=== PATIENT | female | born 1990 | race Caucasian/White ===

== ENCOUNTER 2022-10-09 08:32 | Outpatient (CLI) | payer BC, MEDICAID, SELFPAY ==
--- NOTE | 2022-10-29 11:49 | WPDSLEEPSTUD ---
Sleep Study Date of Study: 10/09/22 Ordering Provider: Adelia Sanchez MD Interpreting Physician: Adelia Sanchez MD Sleep Study Type: Polysomnogram Height: 1.63 m Weight: 108.862 kg Body Mass Index: 41.1 Neck Circumference (inches): 17.5 [place]: 6 Reason for Sleep Study Loud snoring, longstanding hypersomnolence; she has depression, anxiety, and ADHD Sleep History Paola Umaña is a 32-year-old woman with anxiety, depression, ADHD on medications. She has been excessively sleepy for years. She was always the first kid to fall asleep at gatherings. While using ADHD medications, her [place] is 6, in the normal range. she does not have a constellation of symptoms to suggest narcolepsy, no loss of muscle tone with strong emotion, no vivid dreams on sleep onset or on waking, no sleep paralysis and does not have unintended sleep episodes. She never wakes up feeling refreshed. She has excessively loud snoring. She has used nasal dilators trips on her nose for years. he does not awaken from sleep feeling short of breath. She occasionally awakens at night with heartburn, belching or coughing. She always snores loudly enough that others complain. She frequently has difficulty sleeping if she has a cold. She does not gasp for breath at night. She rarely has breathing problems at night observed by others. She rarely sweats excessively at night. She does not notice her heart pounding or beating irregularly at night. She frequently falls asleep during the day. She does not fall asleep involuntarily or while driving. She does not have loss of muscle tone with strong emotion. She frequently has daytime difficulties due to excessive sleepiness. 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 She does not feel paralyzed on waking or falling asleep. She does not have vivid dreamlike scenes on waking or falling asleep. She does not feel afraid to go to sleep. She rarely has nightmares. She rarely remembers her dreams. She rarely has racing thoughts. She occasionally feels sad, depressed, or anxious. She does not have muscular tension. She rarely notices parts of her body jerking. She rarely kicks at night. She rarely has crawling and aching feelings in her legs. She does not have any kind of leg pain at night. She does not have morning jaw pain. She frequently grinds her teeth during sleep. She rarely is bothered by pain during the day, rarely awakened by pain at night. She frequently wakes up feeling stiff in the morning. She occasionally wakes up with sore achy muscles. She frequently wakes up with pain in the neck and spine. She has headaches, fatigue, concentration difficulties and depression. She has acid reflux which is well treated with omeprazole 40 mg a day. She also reports ulcerative colitis. She has had a 20 lb increase in her weight during the last year. she has a longstanding history of sinus problems, sinus drainage, discharge but not frequent sinus infections. Normal bedtime is 9:00 p.m. falling asleep within 10 minutes. She wakes once at night to go to the bathroom and is able to return to sleep quickly. She wakes the morning by 6 or 7:00 a.m.. On weekends, she may go to bed later, bedtime may be between 9:00 p.m. and 11:00 p.m.. She sleeps in, wakes between 9:00 a.m. and 10:00 a.m.. She estimates getting between 8-10 hours of sleep at night. she takes naps in the afternoon or evening. A short nap lasting 10 or 15 minutes may be refreshing. She is usually drowsy for 2 hours after waking. She feels better in the evening compared to other times of the day. Habits: Tobacco a half pack per day. Caffeine: Coffee or soda. Alcohol: 1-2 oz of vodka -4 times a week [facility] Past Medical History Medical History (Updated 10/29/22 @ 12:15 by Adelia Sanchez MD) Acid reflux ADHD Anxiety Depression Snoring
[2022-10-29 12:09] VITALS: BMI 41.1
== END 2022-10-10 07:50 | disposition home or self-care (01) ==
LOC: ANHCSM 08:34
PROVIDERS: PCP Family Medicine; Visit Provider Internal Medicine Critical Care Medicine
DX: G47.19 Other hypersomnia (principal)
CPT/HCPCS: 95810

== ENCOUNTER 2022-10-24 09:04 | Emergency (ER) | payer BC, MEDICAID, SELFPAY ==
[2022-10-24 09:05] VITALS: BP 148/92; PULSE 92; RESP 16; TEMP 36.9; O2SAT 96
--- NOTE | 2022-10-24 09:24 | ED.GENADULT ---
HPI - General Adult General Chief complaint: Unspecified Stated complaint: Hemorrhoid Time Seen by Provider: 10/24/22 09:09 History of Present Illness HPI narrative: 32-year-old female presents to the emergency room for evaluation of a bleeding hemorrhoid. Patient states she woke up this morning and noticed bright red blood in her underwear and on her stool. Patient denies any abdominal or rectal pain or itching. Patient has a known history of hemorrhoids and states that she applied hydrocortisone cream to it this morning with no resolution of symptoms. Related Data Home Medications Medication Instructions Recorded Confirmed clonazepam 0.5 mg tablet 0.5 mg PO DAILY 12/14/18 10/02/22 dexmethylphenidate 35 mg 35 mg PO DAILY 10/02/22 10/02/22 capsule,extended release [id number] (Focalin XR) escitalopram oxalate 20 mg tablet 20 mg PO DAILY 10/02/22 10/02/22 (Lexapro) omeprazole 40 mg capsule,delayed 40 mg PO DAILY 10/02/22 10/02/22 release Allergies Allergy/AdvReac Type Severity Reaction Status Date / Time polyethylene glycol AdvReac Severe Hives Verified 10/24/22 09:05 Review of Systems Review of Systems: CONSTITUTIONAL: Denies fever, chills, or sweats. EYES: Denies visual changes, redness, or discharge. ENT: Denies rhinorrhea, congestion, sore throat, or otalgia. CARDIOVASCULAR: Denies chest pain, palpitations, or edema. RESPIRATORY: Denies cough or dyspnea. GASTROINTESTINAL: Denies abdominal pain, nausea, vomiting, or diarrhea. GENITOURINARY: Denies dysuria or hematuria. SKIN: Denies rash or itching. MUSCULOSKELETAL: Denies back pain, joint pain, or myalgia. NEUROLOGIC: Denies headache, numbness, dizziness, or weakness. PSYCHIATRIC: Denies anxiety or depression. [facility] Past Medical History Medical History Snoring Surgical History Surgical History History of delivery Social History Social History Smoking status: Former smoker Smoking end date: 01/01/14 Alcohol intake: never Exam Narrative: GENERAL: Well-appearing, well-nourished, no physical limitations, and in no acute distress. HEAD: Normocephalic, atraumatic. EYES: Conjunctivae normal, PERRLA and EOMI. CHEST: Clear to auscultation. No respiratory distress. No wheezes rales or rhonchi. HEART: Regular rate and rhythm. No murmur heard. Normal peripheral pulses. ABDOMEN: Soft, nontender, nondistended, normal active bowel sounds. Multiple external hemorrhoids, x1 spontaneous evacuated hemorrhoid BACK: No CVA tenderness EXTREMITIES: Normal range of motion. No edema. No clubbing or cyanosis SKIN: Warm, dry, no rash. No noted wounds NEURO: No focal deficits. Alert and oriented x3. MAEW. CN's II-XI intact bilaterally, normal gait PSYCH: Cooperative. Normal mood and affect. Course Vital Signs Vital signs: Vital Signs Temperature 36.9 C 10/24/22 09:05 Pulse Rate 92 10/24/22 09:05 Respiratory Rate 16 10/24/22 09:05 Blood Pressure 148/92 H 10/24/22 09:05 Pulse Oximetry 96 10/24/22 09:05 Oxygen Delivery Room Air 10/24/22 09:05 Temperature 36.9 C 10/24/22 09:05 Pulse Rate 92 10/24/22 09:05 Respiratory Rate 16 10/24/22 09:05 Blood Pressure 148/92 H 10/24/22 09:05 Pulse Oximetry 96 10/24/22 09:05 Oxygen Delivery Room Air 10/24/22 09:05 Medical Decision Making Vital Signs Vital Signs: Vital Signs Temperature 36.9 C 10/24/22 09:05 Pulse Rate 92 10/24/22 09:05 Respiratory Rate 16 10/24/22 09:05 Blood Pressure 148/92 H 10/24/22 09:05 Pulse Oximetry 96 10/24/22 09:05 Oxygen Delivery Room Air 10/24/22 09:05 Temperature 36.9 C 10/24/22 09:05 Pulse Rate 92 10/24/22 09:05 Respiratory Rate 16 10/24/22 09:05 Blood Pressure 148/92 H 10/24/22 09:05 Pulse Oximetry 96
== END 2022-10-24 09:37 | disposition home or self-care (01) ==
LOC: ANHED 09:32
PROVIDERS: Emergency Provider Nurse Practitioner Family; PCP Family Medicine
DX: K64.4 Residual hemorrhoidal skin tags (principal); Z87.891 Personal history of nicotine dependence
CPT/HCPCS: 99281

== ENCOUNTER 2022-10-25 07:50 | Outpatient (CLI) | payer BC, MEDICAID, SELFPAY ==
--- NOTE | ~2022-10-25 | XR_ITS ---
EXAMINATION: XR chest 2V DATE: 10/25/2022 08:45 INDICATION: Chronic cough. TECHNIQUE: Frontal and lateral views of the chest were obtained. COMPARISON: Chest 2 views 01/05/2016, chest CT 01/05/2016 FINDINGS: There is no pneumonia, pleural effusion, or pneumothorax. The heart size is normal. Surgica l clips in the right upper quadrant are likely from cholecystectomy. IMPRESSION: 1. No acute cardiopulmonary disease. Reviewed, dictated and finalized at location A.
--- NOTE | 2022-10-25 09:39 | WPDPFTINT ---
PFT Procedure Performed PFT Procedure Performed Spirometry with Pre/Post Bronchodilator Plethysmography (Lung Vol) Diffusing Cap (DLCO) Flow Vol Loop PFT Interpretation Lung volumes was measured with the body plethysmography method. Lung volumes are unremarkable. Spirometry showed normal expiratory flow rates and a normal FEV1 to FVC ratio of 82%. Following administration of a bronchodilator there was no significant increase in the expiratory flow rates. Lung diffusion capacity is within the normal range at 103% predicted. The flow-volume loop is unremarkable. Impression: Spirometry, lung volumes, and lung diffusion capacity all within the normal range.
== END 2022-10-25 07:51 | disposition home or self-care (01) ==
PROVIDERS: PCP Family Medicine; Visit Provider Internal Medicine Critical Care Medicine
DX: R05.3 Chronic cough (principal)
CPT/HCPCS: 71046; 94060; 94726; 94729

== ENCOUNTER 2023-04-17 14:54 | Emergency (ER) | payer BC, MEDICAID, SELFPAY ==
[2023-04-17 15:14] VITALS: BP 147/98; PULSE 95; RESP 18; TEMP 36.8; O2SAT 98
--- NOTE | 2023-04-17 15:28 | ED.URI ---
HPI - URI/Sore Throat General Chief Complaint: Upper Respiratory Infection Stated Complaint: Sore Throat/Ears Irritation Time Seen by Provider: 04/17/23 15:28 Source: patient Mode of arrival: ambulatory Limitations: no limitations History of Present Illness HPI Narrative: 33-year-old female presents with complaint of nasal congestion, sinus pressure for the past 2 months. Reports that symptoms have been intermittent. For the past several days has had sore throat, cough. Took 1 Zyrtec and did not help. Also has been taking DayQuil NyQuil with no relief of symptoms. Afebrile. Complaint of intermittent pressure to bilateral ears. No chest pain or shortness of breath. All systems reviewed and negative except as noted above. Related Data Home Medications Medication Instructions Recorded Confirmed clonazepam 0.5 mg tablet 0.5 mg PO DAILY 12/14/18 04/17/23 escitalopram oxalate 20 mg tablet 20 mg PO DAILY 10/02/22 04/17/23 (Lexapro) omeprazole 40 mg capsule,delayed 40 mg PO DAILY 10/02/22 04/17/23 release etonogestrel 0.12 mg-ethinyl 1 vag ring vaginal DAILY 12/17/22 04/17/23 estradiol 0.015 mg/24 hr vaginal ring (NuvaRing) Allergies Allergy/AdvReac Type Severity Reaction Status Date / Time polyethylene glycol AdvReac Severe Hives Verified 04/17/23 14:59 Review of Systems Review of Systems: CONSTITUTIONAL: Denies fever, chills, or sweats. reports fatigue. EYES: Denies visual changes, redness, or discharge. ENT: Reports rhinorrhea, congestion, sore throat, ear pressure bilaterally CARDIOVASCULAR: Denies chest pain, palpitations, or edema. RESPIRATORY: Reports cough. Denies dyspnea. GASTROINTESTINAL: Denies abdominal pain, nausea, vomiting, or diarrhea. GENITOURINARY: Denies dysuria or hematuria. SKIN: Denies rash or itching. MUSCULOSKELETAL: Denies back pain, joint pain, or myalgia. NEUROLOGIC: Denies headache, numbness, or weakness. PSYCHIATRIC: Denies anxiety or depression. All other systems reviewed are negative, except as documented in HPI. [facility] Past Medical History Medical History Acid reflux ADHD Anxiety Depression Snoring Surgical History Surgical History History of delivery Status post cholecystectomy Family History Family History Mother Obstructive sleep apnea Social History Social History (Updated 12/17/22 @ 12:51 by Jada Barrera MA) Smoking packs per day: 1 Smoking cigarettes per day: 20.0 Smoking status: Former smoker Smoking end date: 02/11/13 Alcohol intake: never Comments At time of signature, agree with nursing past medical, surgical, social and family history. There is no relevant family history pertinent to the presenting complaint. Exam Narrative: GENERAL: This is a well-nourished, well-developed patient, in no apparent distress. HEAD: normocephalic, atraumatic. EYES: PERRL. Sclera clear/white. Vision is grossly intact. EARS: External ears normal, auditory canals clear and without drainage, fluid, mild erythema to bilateral TMs without perforation. Hearing grossly intact. NOSE: External nose normal with Purulent nasal drainage , erythema to bilateral nares. THROAT: Mucous membranes moist, postnasal drainage noted. NECK: Neck supple, non-tender without lymphadenopathy, masses or thyromegaly. CARDIOVASCULAR: Regular rate and rhythm without murmurs, gallops, or rubs. RESPIRATORY: Clear to auscultation. Breath sounds equal bilaterally. No wheezes, rales, or rhonchi. SKIN: warm, Dry, intact with no suspicious lesions or rash, good texture and turgor. NEURO: awake, alert, and oriented to person, place and time. There were no obvious focal neurologic abnormalities. EXTREMITIES: No joint tenderness, effusion, or edema noted. Course Course Level
== END 2023-04-17 15:45 | disposition home or self-care (01) ==
PROVIDERS: Emergency Provider Nurse Practitioner Family; PCP Family Medicine
DX: J01.90 Acute sinusitis, unspecified (principal); H65.03 Acute serous otitis media, bilateral; Z87.891 Personal history of nicotine dependence; K21.9 Gastro-esophageal reflux disease without esophagitis; F41.9 Anxiety disorder, unspecified; F32.A Depression, unspecified
CPT/HCPCS: 87081; 87880; 99213; G0463

== ENCOUNTER 2024-01-10 08:06 | Emergency (ER) | payer OTHER, MEDICAID, SELFPAY ==
--- NOTE | ~2024-01-10 | XR_ITS ---
XR chest 2V DATE: 01/10/2024 08:37 INDICATION: Productive cough for 4 days TECHNIQUE: 2 views COMPARISON: 10/25/2022 PA and lateral chest FINDINGS: There is patchy infiltrate in the right lower lung consistent with pneumonia. The lung santos otherwise appear clear. No pleural effusion or pulmonary vascular congestion or pneumothorax. Normal heart size. Included skeletal structures are unremarkable. Status post cholecystectomy. IMPRESSION: Patchy right lower lung infiltrate consistent with pneumonia Reviewed, dictated and finalized at location A. [employer]
[2024-01-10 08:19] VITALS: BP 141/91; PULSE 120; RESP 16; TEMP 37.4; O2SAT 97
--- NOTE | 2024-01-10 08:26 | ED_ITS ---
HPI - URI/Sore Throat General Chief Complaint: Upper Respiratory Infection Stated Complaint: Cough, Sinus, Headache, Fever, Chest Pain Time Seen by Provider: 01/10/24 08:20 Source: patient, RN notes reviewed and old records reviewed Mode of arrival: ambulatory Limitations: no limitations History of Present Illness HPI Narrative: Patient presents with complaints of 4 day history of runny nose, productive cough, fever, 1 episode of vomiting. She reports that she feels as though she is unable to fully expectorates when she coughs, says that she has been swallowing the drainage, had 1 episode of vomiting yesterday. No more. She denies any abdominal pain. She has been taking Sudafed and NyQuil for her symptoms with moderate relief. T-max 100.8?. Denies any injury or trauma. No acute distress noted Related Data Home Medications Medication Instructions Recorded Confirmed omeprazole 40 mg capsule,delayed 40 mg PO DAILY 10/02/22 01/10/24 release etonogestrel 0.12 mg-ethinyl 1 vag ring vaginal DAILY 12/17/22 01/10/24 estradiol 0.015 mg/24 hr vaginal ring (NuvaRing) vortioxetine 10 mg tablet 10 mg PO DAILY 01/10/24 01/10/24 (Trintellix) Allergies Allergy/AdvReac Type Severity Reaction Status Date / Time polyethylene glycol AdvReac Severe Hives Verified 01/10/24 08:27 Review of Systems Review of Systems: All systems reviewed & are unremarkable except as noted in HPI and below Constitutional: Constitutional: Reports as per HPI, Reports no additional constitutional complaints, Reports fever(s) and Reports lethargy ENT: Reports system reviewed and no additional complaints, except as documented, Reports nasal congestion and Reports nasal discharge Cardiovascular: Cardiovascular: Reports no additional cardiovascular complaints Respiratory: Respiratory: Reports no additional respiratory complaints, Reports change in phlegm color, Reports chest congestion, Reports cough and Reports excessive phlegm production Gastrointestinal: Gastrointestinal: Reports no additional gastrointestinal complaints PMFSH Past Medical History Medical History Acid reflux ADHD Anxiety Depression Snoring Surgical History Surgical History History of delivery Status post cholecystectomy Family History Family History Mother Obstructive sleep apnea Social History Social History Smoking packs per day: 1 Smoking cigarettes per day: 20.0 Smoking status: Former smoker Smoking end date: 02/11/13 Alcohol intake: never Comments At the time of my signature, I reviewed and agree with the nursing past medical, surgical, social, and family history. There is no relevant family history pertinent to the patient complaint. Exam Const: General: cooperative, no acute distress, alert and awake Orientation/consciousness: oriented to person, oriented to place and oriented to time HENMT: Head: normal to inspection Ears: TM's normal bilaterally Mouth: Yes moist mucous membranes Throat: posterior oropharynx normal Resp: Effort & Inspection: normal respiratory effort and able to speak in complete sentences Auscultation: clear to auscultation bilaterally, crackles on the right in the lower lung santos, no rales, no rhonchi and no wheezes Cardio: Palpation: normal PMI Rate: regular rate Rhythm: regular rhythm Heart sounds: S1 normal heart sound present and S2 normal heart sound present Neuro: General: oriented to person, oriented to place and oriented to time Cranial nerves: Yes CN's II-XII intact bilaterally Psych: Appearance: grossly normal Thought process: Normal thought process present Insight: Good insight present (Psych) Judgement: Good judgement present (Psych) Course Course Level of Care: Express Care Visit Vital Signs Vital signs: Vital Signs Temperature 99.3 F 01/10/24 08:19 Pulse Rate 120 H 01/10/24 08:19 Respiratory Rate 16 01/10/24 08:19 Blood Pressure 141/91 H 01/10/24 08:19 Pulse Oximetry 97 01/10/24 08:19 Oxygen Delivery Room Air 01/10/24 08:19 Temperature 99.3 F 01/10/24 08:19 Pulse Rate 120 H 01/10/24 08:19 Respiratory Rate 16 01/10/24 08:19 Blood Pressure 141/91 H 01/10/24 08:19 Pulse Oximetry 97 01/10/24 08:19 Oxygen Delivery Room Air 01/10/24 08:19 Reviewed MDM - URI/Sore Throat MDM Narrative Medical decision making narrative: History, chest x-ray, exam consistent with right lower lobe pneumonia. Patient nontoxic appearing, stable for discharge home on p.o. antibiotic therapy. Add bronchodilator. Follow with primary care provider. Emergency department for new or worse symptoms. Discharge instructions reviewed with patient, as well as provided in writing per nursing staff. The instructions also include specific and strict return/GO TO THE ER as well as f/u information. All questions have been answered, and the patient deny any further questions with discharge and discharge plan. Some parts of this dictation were generated by voice recognition software and may contain typographical and/or grammatical inaccuracies. Differential Diagnosis Differential diagnosis: Likely upper respiratory infection, viral infection, bronchitis and influenza Medical Records Attestation: I reviewed the patient's medical records. Imaging Data Attestation: I personally reviewed and interpreted this imaging study as follows: My impression: Right lower lobe pneumonia Radiologist's impression: [facility] [address] [place] [address] XRay Report Signed Patient: Paola Umaña : 1990 MR#: [id number] Age: 33 Acct:[id number] Loc: [facility] ADM Date: 01/10/24Attending Dr: Ordering Physician: Lesli Camp FNP Date of Service: 01/10/24 Procedure(s): XR chest 2V Accession Number(s): [id number] cc: Lesli Camp FNP; Jamia, Marisel Srinivasan MD~ XR chest 2V DATE: 01/10/2024 08:37 INDICATION: Productive cough for 4 days TECHNIQUE: 2 views COMPARISON: 10/25/2022 PA and lateral chest FINDINGS: There is patchy infiltrate in the right lower lung consistent with pneumonia. The lung santos otherwise appear clear. No pleural effusion or pulmonary vascular congestion or pneumothorax. Normal heart size. Included skeletal structures are unremarkable. Status post cholecystectomy. IMPRESSION: Patchy right lower lung infiltrate consistent with pneumonia Reviewed, dictated and finalized at location A. R DESIGNER Dictated By: Isael Mccabe MD 01/10/2444 Signed By: <Electronically signed by Isael Mccabe MD in OV> 01/10/24844 Discharge Plan Discharge Clinical Impression: Pneumonia Qualifiers: Pneumonia type: due to unspecified organism Laterality: right Lung location: lower lobe of lung Qualified Code(s): J18.9 - Pneumonia, unspecified organism Patient Disposition: Home, Self-Care Condition: Stable Instructions: Antibiotic Form, Community Acquired Pneumonia (ED) Additional Instructions: Take all medications as prescribed. Follow-up with primary care provider. Emergency department for any new or worsening symptoms Patient Language: Turkmen Prescriptions: New azithromycin 250 mg tablet See Rx Instructions .ROUTE .COMPLEX Qty: 6 0RF Rx Instructions: For 250 mg dose pack: take 500 mg today (day 1), then 250 mg for 4 days (days 2-5) albuterol sulfate [Ventolin HFA] 90 mcg/actuation HFA aerosol inhaler 2 puff inhalation QID PRN (Reason: shortness of breath or wheezing) Qty: 8.5 0RF No Action Trintellix 10 mg Tablet 10 mg PO DAILY omeprazole 40 mg capsule,delayed release(DR/EC) 40 mg PO DAILY etonogestrel-ethinyl estradiol [NuvaRing] 0.12-0.015 mg/24 hr ring 1 vag ring vaginal DAILY Follow-up/Referrals: Jamia,MD Marisel [Primary Care Provider] - Stand Alone Forms: Work/School Release IP Time of Disposition: 09:00
== END 2024-01-10 09:06 | disposition home or self-care (01) ==
PROVIDERS: Emergency Provider Nurse Practitioner Family; PCP Family Medicine
DX: J18.9 Pneumonia, unspecified organism (principal); Z87.891 Personal history of nicotine dependence; K21.9 Gastro-esophageal reflux disease without esophagitis; F32.A Depression, unspecified
CPT/HCPCS: 71046; 99213; G0463

== ENCOUNTER 2024-02-15 10:40 | Emergency (ER) | payer OTHER, MEDICAID, SELFPAY ==
--- NOTE | 2024-02-15 10:41 | ED_ITS ---
HPI - URI/Sore Throat General Chief Complaint: Upper Respiratory Infection Stated Complaint: Sinus Time Seen by Provider: 02/15/24 11:00 Source: patient and RN notes reviewed Mode of arrival: ambulatory Limitations: no limitations History of Present Illness HPI Narrative: 34-year-old female presents with concern for one-week history of sinus congestion, if drainage, right ear pain, cough, chest congestion. She denies fever, aches, chills, sweats, shortness of breath. MD elicited complaint: cough and other (ear pain) Related Data Home Medications ?Medication ?Instructions ?Recorded ?Confirmed ?Last Taken ?Type omeprazole 40 mg capsule,delayed 40 mg PO DAILY 10/02/22 01/10/24 Unknown History release etonogestrel 0.12 mg-ethinyl 1 vag ring vaginal DAILY 12/17/22 01/10/24 Unknown History estradiol 0.015 mg/24 hr vaginal ring (NuvaRing) vortioxetine 10 mg tablet 10 mg PO DAILY 01/10/24 01/10/24 Unknown History (Trintellix) semaglutide (weight loss) subcut 02/15/24 Unknown History Allergies Allergy/AdvReac Type Severity Reaction Status Date / Time polyethylene glycol AdvReac Severe Hives Verified 02/15/24 10:41 Review of Systems Review of Systems: CONSTITUTIONAL: Denies malaise, chills, sweats, or fever. EYES: Denies visual changes, redness, or discharge. ENT: Reports rhinorrhea, congestion, right otalgia CARDIOVASCULAR: Denies chest pain, palpitations, or edema. RESPIRATORY: Reports cough and chest congestion. Denies dyspnea. GASTROINTESTINAL: Denies abdominal pain, nausea, vomiting, diarrhea SKIN: Denies rash or itching. MUSCULOSKELETAL: Denies myalgia. NEUROLOGIC: Denies headache. All systems reviewed & are unremarkable except as noted in HPI and below PMFSH Past Medical History Medical History Acid reflux ADHD Anxiety Depression Snoring Surgical History Surgical History History of delivery Status post cholecystectomy Family History Family History Mother Obstructive sleep apnea Social History Social History Smoking packs per day: 1 Smoking cigarettes per day: 20.0 Smoking status: Former smoker Smoking end date: 02/11/13 Alcohol intake: never Comments At time of signature, agree with nursing past medical, surgical, social and family history. There is no relevant family history pertinent to the presenting complaint Exam Narrative: GENERAL: Well-appearing, well-nourished, and in no acute distress. HEAD: Normocephalic EYES: PERRLA, conjunctivae clear ENT: Nares clear, turbinates edematous and erythematous, clear discharge. Mucous membranes moist. TM pearly das with dull light reflex on the left, erythematous and bulging on the right; no tragal tenderness. Oropharynx not erythematous without lesions. Tonsils not enlarged and without exudate, no drooling, no hoarseness, no trismus, uvula midline. NECK: Supple. No lymphadenopathy CHEST: Clear to auscultation, breath sounds equal. No wheezing, rhonchi, rales, or stridor. No respiratory distress, speaks in full sentences. HEART: Regular rate and rhythm. No murmur heard. SKIN: Warm, dry, no rash. NEURO: Alert and oriented x3. PSYCH: Normal mood and affect Course Course Emergency Course: Patient is aware of diagnosis, understands and agrees to treatment plan. Anticipatory guidance given. Patient agrees to follow-up as directed and is aware of reasons to seek care at the emergency department. Portions of this record may have been created with voice recognition software Level of Care: Express Care Visit Vital Signs Vital signs: Reviewed. MDM - URI/Sore Throat MDM Narrative Medical decision making narrative: Differential diagnosis considered: Choudhury virus, strep pharyngitis, allergic rhinitis, upper respiratory tract infection, sinusitis, rhinosinusitis, nasopharyngitis. viral pharyngitis, otitis media, otitis externa, pneumonia, bronchitis, viral cough syndrome, viral syndrome, and influenza. Exam findings show no acute concerns or changes; patient is non-toxic appearing and is in no distress. Patient is appropriate for outpatient treatment and follow-up. Lab Data Attestation: I reviewed the patient's lab results. Critical Care Time Critical Care Time Critical Care Time: No Discharge Plan Discharge Clinical Impression: Otitis media, Upper respiratory infection with cough and congestion Patient Disposition: Home, Self-Care Condition: Stable Instructions: Antibiotic Form, Ear Infection (ED) Additional Instructions: Take antibiotics as directed. Recommend antihistamine such as Benadryl at night time and Zyrtec or Era during the day until symptoms improve Flonase nasal spray, 2 sprays in each nostril once daily until symptoms improve Also, recommend symptomatic treatment includes: rest, fluids, and increase humidity of the air at home. Recommend Acetaminophen as directed on the bottle to reduce fever, pain Please schedule a follow-up visit with your personal physician for further evaluation and treatment within 3-5days. If your symptoms persist, change or worsen significantly before you can contact your personal physician then please, without delay, go to the emergency department for further evaluation. Patient Language: Portuguese Prescriptions: New methylprednisolone [Medrol (Sotero)] 4 mg tablets,dose pack See Rx Instructions .ROUTE .COMPLEX Qty: 21 0RF Rx Instructions: orally per package directions cefdinir 300 mg capsule 300 mg PO Q12H 10 Days Qty: 20 0RF No Action Trintellix 10 mg Tablet 10 mg PO DAILY semaglutide (weight loss) subcut omeprazole 40 mg capsule,delayed release(DR/EC) 40 mg PO DAILY etonogestrel-ethinyl estradiol [NuvaRing] 0.12-0.015 mg/24 hr ring 1 vag ring vaginal DAILY Follow-up/Referrals: Jamia,MD Marisel [Primary Care Provider] - Time of Disposition: 11:09
[2024-02-15 10:47] VITALS: BP 160/126; PULSE 100; RESP 18; TEMP 36.2; O2SAT 99
== END 2024-02-15 11:30 | disposition home or self-care (01) ==
PROVIDERS: Emergency Provider Nurse Practitioner; PCP Family Medicine
DX: H66.90 Otitis media, unspecified, unspecified ear (principal); J06.9 Acute upper respiratory infection, unspecified; Z87.891 Personal history of nicotine dependence
CPT/HCPCS: 99213; G0463

== ENCOUNTER 2025-01-31 08:45 | Emergency (ER) | payer OTHER, SELFPAY ==
[2025-01-31 08:53] VITALS: BP 140/83; PULSE 84; RESP 16; TEMP 36.9; O2SAT 98
--- NOTE | 2025-01-31 09:40 | ED_ITS ---
HPI - Eye Problem General Chief complaint: Eye Problems Stated complaint: irritation in both eyes Time Seen by Provider: 01/31/25 09:32 Source: patient and RN notes reviewed Mode of arrival: ambulatory Limitations: no limitations History of Present Illness HPI Narrative: 35-year-old female patient presents today complaining of redness and itching to the bilateral upper and left lower eyelids x1 plus weeks, worse today. She has stopped her makeup use over the last several days and started using some Vaseline, anti-itch Benadryl cream, and ice packs with only mild relief. Denies any changes in her household products, or any new exposures. Related Data Home Medications ?Medication ?Instructions ?Recorded ?Confirmed ?Last Taken ?Type omeprazole 40 mg capsule,delayed 40 mg PO DAILY 01/10/24 Unknown History release etonogestrel 0.12 mg-ethinyl 1 vag ring vaginal DAILY 12/17/22 01/10/24 Unknown History estradiol 0.015 mg/24 hr vaginal ring (NuvaRing) vortioxetine 10 mg tablet 10 mg PO DAILY 01/10/2412/13 Unknown History (Trintellix) trazodone 50 mg tablet mg 01/31/25 Unknown History Allergies Allergy/AdvReac Type Severity Reaction Status Date / Time polyethylene glycol AdvReac Severe Hives Verified 01/31/25 09:42 [facility] Past Medical History Medical History Acid reflux Snoring Anxiety Depression ADHD Surgical History Surgical History Status post cholecystectomy History of delivery Family History Family History Mother Obstructive sleep apnea Social History Social History Smoking packs per day: 1 Smoking cigarettes per day: 20.0 Smoking status: Former smoker Smoking end date: 02/11/13 Alcohol intake: never Comments At time of signature, I have reviewed and agree with nursing past medical, surgical, social and family history unless otherwise noted. Please see nursing chart for further information. There is no relevant family history pertinent to the presenting complaint Exam Narrative: GENERAL: Well-appearing, well-nourished, and in no acute distress. HEAD: Normocephalic, atraumatic. EYES: EOMI. JILLIAN. No redness or drainage from the eye. Conjunctivae normal. Redness to the bilateral medial upper eyelids and majority of left lower eyelid with some mild flaking noted. No crusting. Nontender. No edema. ENT: Mucous membranes pink and moist. NECK: Normal AROM. CHEST: No respiratory distress. EXTREMITIES: Normal range of motion. No edema. SKIN: Warm, dry. Capillary refill normal. Normal skin turgor. NEURO: No focal deficits. Alert and oriented x3. Gait steady. PSYCH: Normal affect. No signs of depression or anxiety. Course Course Level of Care: Express Care Visit Vital Signs Vital signs: Vital Signs Temperature 98.4 F 01/31/25 08:53 Pulse Rate 84 01/31/25 08:53 Respiratory Rate 16 01/31/25 08:53 Blood Pressure 140/83 01/31/25 08:53 Pulse Oximetry 98 01/31/25 08:53 Oxygen Delivery Room Air 01/31/25 08:53 Temperature 98.4 F 01/31/25 08:53 Pulse Rate 84 01/31/25 08:53 Respiratory Rate 16 01/31/25 08:53 Blood Pressure 140/83 01/31/25 08:53 Pulse Oximetry 98 01/31/25 08:53 Oxygen Delivery Room Air 01/31/25 08:53 Reviewed MDM MDM Narrative Medical decision making narrative: 35-year-old female patient presents today complaining of redness and itching to the bilateral upper and left lower eyelids x1 plus weeks, worse today. She has stopped her makeup use over the last several days and started using some Vaseline, anti-itch Benadryl cream, and ice packs with only mild relief. Denies any changes in her household products, or any new exposures. Upon exam,Conjunctivae normal. Redness to the bilateral medial upper eyelids and majority of left lower eyelid with some mild flaking noted. No crusting. Nontender. No edema. Exam consistent with periorbital dermatitis. Recommend continuing Vaseline with a adding a 1% hydrocortisone ointment with PCP or D ermatology follow-up in 1 week if symptoms are not improving. Patient agrees with plan. Vital signs stable. Anticipatory guidance given. Differential Diagnosis Differential Diagnosis: Eczema, periorbital dermatitis, cellulitis Critical Care Time Critical Care Time Critical Care Time: No Discharge Plan Discharge Clinical Impression: Periorbital dermatitis Patient Disposition: Home Condition: Stable Instructions: Dermatitis (ED) Additional Instructions: Continue with Vaseline, but at some 1% [id number] hydrocortisone 1-2 times daily. Follow-up with your PCP or mechanical engineering draftsperson in 1 week if symptoms are not improving. Do not return to makeup use until resolved. Patient Language: Vietnamese Prescriptions: No Action trazodone 50 mg tablet Trintellix 10 mg Tablet 10 mg PO DAILY omeprazole 40 mg capsule,delayed release(DR/EC) 40 mg PO DAILY etonogestrel-ethinyl estradiol [NuvaRing] 0.12-0.015 mg/24 hr ring 1 vag ring vaginal DAILY Follow-up/Referrals: Jamia,MD Marisel [Primary Care Provider, Unknown] Time of Disposition: 09:46
== END 2025-01-31 09:50 | disposition home or self-care (01) ==
PROVIDERS: Emergency Provider Nurse Practitioner; PCP Family Medicine
DX: H01.9 Unspecified inflammation of eyelid (principal); K21.9 Gastro-esophageal reflux disease without esophagitis; F41.9 Anxiety disorder, unspecified; F32.A Depression, unspecified; Z87.891 Personal history of nicotine dependence
CPT/HCPCS: 99211; G0463